=== PATIENT | female | born 1960 | race Caucasian/White ===

== ENCOUNTER 2022-05-09 05:00 | Emergency (ER) | payer OTHER, SELFPAY ==
--- NOTE | ~2022-05-09 | XR_ITS ---
EXAMINATION: XR CHEST CLINICAL INFORMATION: Chest pain COMPARISON: None TECHNIQUE: Frontal view of the chest was obtained. FINDINGS: The lungs are well expanded. There is no focal consolidation, edema, or effusion. No pneumothorax. The cardiomediastinal silhouette is within normal limits. No acute osseous abnormality. XR/XR chest 1V IMPRESSION: Clear lungs.
--- NOTE | ~2022-05-09 | CT_ITS ---
EXAMINATION: CT ANGIOGRAM CHEST CLINICAL INFORMATION: Mid chest pain radiating to the back. Question dissection. COMPARISON: Chest radiograph from today TECHNIQUE: Multiple axial images were obtained through the chest after the administration of 70 mL of Omnipaque 350 intravenous contrast. Extensive vascular post-processing including two-dimensional and three-dimensional reformatted images were created and reviewed on an independent workstation. This CT examination was performed using dose optimization techniques as appropriate, variously including the following: *Automated exposure control *Adjustment of mA and/or kV according to patient size (this includes techniques or standardized protocols for targeted exams where dose is matched to indication/reason for exam; i.e. extremities or head) *Use of iterative reconstruction technique DLP: 222 mGy-cm FINDINGS: Vascular: 1. Normal origin of the main coronary arteries. Normal caliber ascending thoracic aorta without dissection. 2. Normal caliber aortic arch. Patent origin of the great vessels. No dissection. 3. The descending thoracic aorta is normal in course and caliber without dissection. Nonvascular: The central airways are patent. No consolidation, edema, or effusion. No pneumothorax. No suspicious pulmonary nodules. Normal heart size. No pericardial effusion. No mediastinal lymphadenopathy. No central pulmonary embolism. No axillary lymphadenopathy or chest wall mass. The visualized upper abdomen shows no acute abnormality. No acute or suspicious osseous abnormality. Mild degenerative changes throughout the spine. CT/CT angio chest aorta IMPRESSION: No aortic dissection. No acute vascular abnormality. No acute finding within the chest. Fleischner guidelines were followed.
--- NOTE | 2022-05-09 05:03 | ECG_ITS ---
Test Reason : CHEST PAIN Blood Pressure : / mmHG Vent. Rate : 085 BPM Atrial Rate : 085 BPM P-R Int : 132 ms QRS Dur : 074 ms QT Int : 384 ms P-R-T Axes : 056 025 013 degrees QTc Int : 456 ms Normal sinus rhythm Normal ECG When compared with ECG of 31-AUG-2006 16:03, Premature supraventricular complexes are no longer Present Referred By: Generic ED Physician Electronically Signed By:TORREY ANDRE
[2022-05-09 05:07] VITALS: BMI 32.1
[2022-05-09 05:21] LABS: Basophils Absolute Auto 0.1 X10*3/uL (0.0-0.2); Basophils Percent Auto 0.9 % (0-2); Eosinophils Absolute Auto 0.2 X10*3/uL (0.0-0.4); Eosinophils Percent Auto 3.3 % (0-4); Hematocrit 42.1 % (37.0-47.0); Hemoglobin 14.3 g/dl (12.0-16.0); Imm Gran Abs Auto 0.01 X10*3/uL (0.00-0.03); Imm Gran Pct Auto 0.2 % (0.0-0.4); Lymphocytes Absolute Auto 2.1 X10*3/uL (1.2-4.9); Lymphocytes Percent Auto 33.4 % (20-40); MANUAL DIFF FLAG NO; Mean Corpuscular Hemoglobin 30.5 pg (27.0-33.0); Mean Corpuscular Volume 89.8 fL (80.0-98.0); Mean Platelet Volume 10.2 fL (9.4-12.3); Monocytes Absolute Auto 0.6 X10*3/uL (0.1-1.2); Monocytes Percent Auto 9.1 % (2-11); Neutrophils Absolute Auto 3.4 x10*3/uL (2.0-8.3); Neutrophils Percent Auto 53.1 % (45-73); Platelet Count 226 X10*3/uL (160-400); Red Blood Count 4.69 X10*6/uL (4.20-5.50); Red Cell Distribution Width 12.2 % (11.0-16.0); White Blood Count 6.4 X10*3/uL (4.8-10.8)
--- NOTE | 2022-05-09 05:31 | ED_ITS ---
HPI - Chest Pain General Chief Complaint: Chest Pain Stated Complaint: chest pain Time Seen by Provider: 05/09/22 05:31 Source: patient Mode of arrival: ambulatory Limitations: no limitations History of Present Illness HPI narrative: Patient with history of SVT no known coronary artery disease woke up from the sleep with midsternal chest pain stabbing in nature radiating to the back also complaining of nausea no shortness of breath no diaphoresis EKG done in triage without any ischemic changes. Patient had a stress test about 4 5 years ago which was negative no history of gerd Related Data Previous Rx's Medication Instructions Recorded aspirin 81 mg tablet,delayed 81 mg PO DAILY #30 tabs 05/09/22 release omeprazole 20 mg capsule,delayed 20 mg PO DAILY #30 caps 05/09/22 release Allergies Allergy/AdvReac Type Severity Reaction Status Date / Time penicillin V Allergy Unknown rash Verified 05/09/22 05:09 codiene Allergy Unknown anaphylaxis Uncoded 05/09/22 05:09 Review of Systems Review of Systems: Yes all other systems are reviewed and are negative FOR[facility]LY [facility], [facility] Social History Social History Advance Directives: No Physical Exam Vital Signs: Vital Signs: Last Vital Signs Pulse 83 05/09/22 06:35 Resp 20 05/09/22 06:35 BP 114/63 05/09/22 06:35 Pulse Ox 98 05/09/22 06:35 O2 Del Method 05/09/22 06:35 BMI result Body Mass Index 32.1 Appearance: Alert. Oriented X3. No acute distress. Eyes: PERRLA, No Nystagmus ENT: Pharynx normal. Oral Mucosa moist Neck: Normal inspection. Neck supple. CVS: Normal heart rate and rhythm. Pulses normal. Respiratory: No respiratory distress. Equal air entry bilateral, no wheezing/rales/rhonchi Abdomen: Soft and nontender. Bowel sounds are present, no mass palpable, no CVA tenderness Skin: Skin warm and dry. Normal skin color. Normal skin turgor. Extremities: No lower extremity edema. No calf tenderness Neuro: Oriented X 3. No motor deficit. No sensory deficit.No cerebellar signs , cranial nerves II-XII intact MDM - Chest Pain MDM Narrative Medical decision making narrative: 7 am Patient with sudden onset of chest pain with no prior history of coronary disease heart score of 1 initial troponin negative initial EKG negative CTA chest negative for dissection likely esophageal spasm will repeat troponin and follow Lab Data Attestation: I reviewed the patient's lab results. Result diagrams: 05/09/22 05:16 05/09/22 05:16 Labs: Lab Results 05/09/22 05/09/22 05/09/22 Range/Units 05:16 05:16 05:16 WBC 6.4 (4.8-10.8) X10*3/uL RBC 4.69 (4.20-5.50) X10*6/uL Hgb 14.3 (12.0-16.0) g/dl Hct 42.1 (37.0-47.0) % MCV 89.8 (80.0-98.0) fL MCH 30.5 (27.0-33.0) pg MCHC 34.0 (31.0-35.0) g/dl RDW 12.2 (11.0-16.0) % Plt Count 226 (160-400) X10*3/uL MPV 10.2 (9.4-12.3) fL Immature Gran % (Auto) 0.2 (0.0-0.4) % Neut % (Auto) 53.1 (45-73) % Lymph % (Auto) 33.4 (20-40) % [place] % (Auto) 9.1 (2-11) % Eos % (Auto) 3.3 (0-4) % Baso % (Auto) 0.9 (0-2) % Lymph # (Auto) 2.1 (1.2-4.9) X10*3/uL [place] # (Auto) 0.6 (0.1-1.2) X10*3/uL Eos # (Auto) 0.2 (0.0-0.4) X10*3/uL Baso # (Auto) 0.1 (0.0-0.2) X10*3/uL Abs Immat Gran (auto) 0.01 (0.00-0.03) X10*3/uL Absolute Neuts (auto) 3.4 (2.0-8.3) x10*3/uL Absolute Nucleated RBC 0.000 (0.0-0.012) X10*3/uL Nucleated RBC % (auto) 0.0 (0.0-0.2) /100WBC Sodium 141 (135-145) mmol/L Potassium 4.1 (3.3-5.1) mmol/L Chloride 107 (96-108) mmol/L Carbon Dioxide 26 (22-29) mmol/L Anion Gap 12 (12-20) BUN 14 (9-16) mg/dL Creatinine 0.78 (0.5-1.4) mg/dL Estim Creat Clear Calc 72.0 Estimated GFR > 60 Random Glucose 98 (60-115) mg/dL Calcium 9.1 (8.4-10.2) mg/dL Troponin I High Sens < 3.5 (<3.5-17.0) ng/L ECG Data ECG #1: Attestation: I personally reviewed and interpreted this ECG as follows: Interpretation: Normal sinus rhythm heart rate 85 beats per minute normal interval normal axis no acute ST-T changes impression normal EKG Scores Heart Score History: -0- slightly suspicious ECG: -0- normal Age: -1- >45 - <65 Risk factory: -0- no risk factors known Troponin: -0- < or = normal limit Score: 1 Risk: 1.7% Discharge Plan Discharge Clinical Impression: Chest pain Patient Disposition: Still a Patient Instructions: Chest Pain (ED) Additional Instructions: Etiology of chest pain is not very clear you need further evaluation including stress test. Take baby aspirin for now daily\ Also take Prilosec 20 mg daily follow-up with care services manager/PCP Prescriptions: New omeprazole 20 mg capsule,delayed release(DR/EC) 20 mg PO DAILY Qty: 30 0RF aspirin 81 mg tablet,delayed release (DR/EC) 81 mg PO DAILY Qty: 30 0RF
[2022-05-09 05:34] VITALS: BP 130/89; PULSE 92; RESP 16; O2SAT 99
[2022-05-09 05:38] LABS: Anion Gap 12 (12-20); Blood Urea Nitrogen 14 mg/dL (9-16); Calcium 9.1 mg/dL (8.4-10.2); Carbon Dioxide 26 mmol/L (22-29); Chloride 107 mmol/L (96-108); Estimated Glomerular Filt Rate > 60; Glucose Random 98 mg/dL (60-115); Potassium 4.1 mmol/L (3.3-5.1); Sodium 141 mmol/L (135-145)
[2022-05-09 05:40] LABS: Troponin-I High Sensitivity < 3.5 ng/L (<3.5-17.0)
[2022-05-09] MEDS: iohexoL 350 MG/ML 100 ML INFUS..BTL IV (06:07)
[2022-05-09 06:35] VITALS: BP 114/63; PULSE 83; RESP 20; O2SAT 98
[2022-05-09] MEDS: Aspirin 81 MG TAB.CHEW 162 MG PO (07:45)
[2022-05-09] MEDS: Famotidine/PF 20 MG/2 ML VIAL IVPUSH (07:45)
[2022-05-09 08:30] VITALS: BP 101/62; PULSE 81; RESP 12; O2SAT 100
[2022-05-09 08:48] LABS: Troponin-I High Sensitivity < 3.5 ng/L (<3.5-17.0)
--- NOTE | 2022-05-09 09:11 | PC.NURSE ---
REPEAT TROPONIN WNL. PLAN IS FOR DC HOME. PT AGREEABLE TO PLAN. STATES NO QUESTIONS. IV REMOVED.
== END 2022-05-09 09:14 | disposition home or self-care (01) ==
PROVIDERS: Internal Medicine; Emergency Provider Student in an Organized Health Care Education/Training Program; PCP Internal Medicine
DX: R07.89 Other chest pain (principal); Z79.899 Other long term (current) drug therapy
CPT/HCPCS: 36415; 71045; 71275; 80048; 84484; 85025; 93005; 96374; 99284; Q9967